=== PATIENT | female | born 1970 | race Caucasian/White ===

== ENCOUNTER 2016-10-15 09:16 | Observation (INO) ==
[2016-10-15] MEDS ORDERED: Aspirin 81 MG TAB.CHEW PO ONE (09:29)
--- NOTE | 2016-10-15 09:34 | Emergency Department Note ---
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 She describes it as left-sided with some radiation up into her shoulder. The patient 's risk factor she has border cholesterol elevation. Pt complaint: chest pain Onset (ago): week(s) Duration: intermittent Onset: during rest, during exertion Pain Location: substernal, left chest Severity scale (1-10): 4 Quality: tightness, aching Pain Radiation: LUE Improves with: nothing Worsens with: nothing Associated symptoms: Reports: dyspnea Treatments prior to arrival chest pain: none - Related Data Home Medications Medication Instructions Recorded Confirmed Albuterol Sulfate [Albuterol 2 puff IH Q4HR PRN 12/08/15 12/08/15 Inhaler] BuPROPion XL (24 HR) [Wellbutrin 150 mg PO DAILY 12/08/15 12/08/15 XL] Cetirizine HCl [Zyrtec] 10 mg PO DAILY 12/08/15 12/08/15 Fluticasone Propionate Nasal 2 spr NS DAILY 12/08/15 12/08/15 [Flonase] Lansoprazole [Prevacid] 30 mg PO DAILY PRN 12/08/15 12/08/15 Montelukast [Singulair] 10 mg PO DAILY 12/08/15 12/08/15 Multivitamin [One Daily Essential] 1 each PO DAILY 12/08/15 12/08/15 [place]-3/Dha/Epa/Fish Oil [Fish Oil 1 each PO DAILY 12/08/15 12/08/15 1,000 mg Softgel] Sertraline [Zoloft] 50 mg PO DAILY 12/08/15 12/08/15 Allergies Allergy/AdvReac Type Severity Reaction Status Date / Time acetaminophen [From Vicodin] AdvReac Vomiting Verified 12/08/15 09:32 hydrocodone [From Vicodin] AdvReac Vomiting Verified 12/08/15 09:32 Constitutional: Denies: fever, chills, weakness, weight change Eyes: Denies: eye pain, eye discharge, vision change ENT ED: Denies: ear pain, throat pain, dental pain, hearing loss, epistaxis, congestion, dysphagia Cardiovascular: Reports: chest pain, dyspnea on exertion. Denies: palpitations , edema, syncope Respiratory: Denies: cough, dyspnea, wheezes, hemoptysis, stridor Gastrointestinal: Denies: abdominal pain, nausea, vomiting, diarrhea, constipation, hematemesis, melena, hematochezia Genitourinary: Denies: dysuria, frequency, hematuria, discharge Musculoskeletal: Denies: back pain, neck pain, arthralgia, myalgia Integumentary: Denies: rash, abrasion, lesions Neurological: Denies: headache, weakness, numbness, paresthesias, confusion, abnormal gait, vertigo Psychiatric: Denies: anxiety, depression, suicidal thoughts, homicidal thoughts , auditory hallucinations, visual hallucinations Endocrine: Denies: fatigue Hematological/Lymphatic: Denies: easy bleeding, easy bruising Allergic/Immunologic: Denies: facial swelling, urticaria Chest Pain PMH - Past Medical History Medical history: Reports: asthma, GERD Surgical history: Reports: cholecystectomy Psychiatric history: Reports: anxiety, depression - Social History Smoking Status: Never smoker Alcohol use: Reports: none Drug use: Reports: none Physical Exam - General Limitations: no limitations General appearance: alert, in no apparent distress - Head Head exam: atraumatic, normocephalic, normal inspection - Eye Eye exam: Present: normal appearance, PERRL, EOMI - ENT ENT exam: normal exam, normal oropharynx, mucous membranes moist - Neck Neck exam: Present: normal inspection, full ROM, trachea midline - Chest Chest inspection: Present: normal inspection, symmetric chest wall rise - Respiratory Respiratory exam: Present: normal lung sounds bilaterally - Cardiovascular Cardiovascular exam: Present: regular rate, normal rhythm, normal heart sounds - Abdominal Exam Abdominal exam: Present: soft, Non-Tender. Absent: tenderness, distention, guarding, rebound, rigidity - Extremities Exam Extremities exam: Present: normal inspection, full ROM. Absent: tenderness, pedal edema - Expanded Lower Extremity Exam Neurovascular/Tendon exam: Absent: motor deficit, sensory deficit, tendon deficit Gait: observed and normal - Back Exam Back exam: Present: normal inspection, full ROM. Absent: tenderness - Neurological Exam Neurological exam: Present: alert, oriented X3 - Psychiatric Psychiatric exam: Present: normal affect, normal mood - Skin Skin exam: Present: warm, dry, intact, normal color Course - Reevaluation(s) Reevaluation #1: 45-year-old who comes in complaining of chest pain and exertional dyspnea dyspnea has been going on for about a month exertional chest pain for about a week. Does have some risk factors. Her clinical history is concerning for cardiac workup here in the ED was negative however we will admit for further evaluation. Time: 11:04 - Consultations Consultation #1: Discussed with Dr. Bradshaw, it. Time: 11:19 Vital Signs Temperature 98.3 F 10/15/16 09:21 Pulse Rate 70 10/15/16 09:21 Respiratory Rate 18 10/15/16 09:21 Blood Pressure 164/93 10/15/16 09:21 O2 Sat by Pulse Oximetry 97 10/15/16 09:21 Temperature 98.3 F 10/15/16 09:21 Pulse Rate 72 10/15/16 11:08 Respiratory Rate 18 10/15/16 11:08 Blood Pressure 109/71 10/15/16 11:08 O2 Sat by Pulse Oximetry 95 10/15/16 11:08 Oxygen Delivery Oxygen Delivery Room Air Chest Pain - Lab Data Lab results reviewed: Yes I reviewed the patient's lab results. Result diagrams: 10/15/16 09:51 10/15/16 09:51 Lab Results 10/15/16 10/15/16 10/15/16 Range/Units 09:51 09:51 09:51 WBC 7.1 (4.3-11.1) K/mcL RBC 4.35 (3.82-4.97) M/mcL Hgb 12.7 (11.5-15.4) g/dL Hct 37.9 (35.3-44.9) % MCV 87.1 (83.0-100.0) fL MCH 29.2 (28.0-33.3) pg MCHC 33.5 (31.6-35.5) g/dL RDW 13.1 (11.5-14.5) % Plt Count 250 (140-400) K/mcL MPV 9.4 (9.4-12.4) fL Immature Gran % 0.1 (0-4) % Seg Neutrophils % 59.8 % Lymphocytes % 30.4 % Monocytes % 7.5 % Eosinophils % 1.8 % Basophils % 0.4 % Neutrophils # 4.2 (1.6-8.9) K/mcL Lymphocytes # 2.2 (0.6-4.6) K/mcL Monocytes # 0.5 (0.0-1.3) K/mcL Eosinophils # 0.1 (0.0-0.6) K/mcL Basophils # 0.0 (0.0-0.2) K/mcL PT 11.4 (9.4-12.1) Seconds INR 1.1 APTT 30.8 (26.0-36.0) Seconds Sodium (136-145) mEq/L Potassium (3.5-4.5) mEq/L Chloride (98-109) mEq/L Carbon Dioxide (19-29) mEq/L BUN (7-20) mg/dL Creatinine (0.57-1.11) mg/dL Est GFR ( Amer) (> 60) Est GFR (Non-Af Amer) (> 60) BUN/Creatinine Ratio (6-26) Glucose (70-99) mg/dL Calculated Osmolality (280-300) Calcium (8.6-10.8) mg/dL Troponin I (0-0.03) ng/mL B-Natriuretic Peptide 34 (0-100) pg/mL 10/15/16 10/15/16 Range/Units 09:51 09:51 WBC (4.3-11.1) K/mcL RBC (3.82-4.97) M/mcL Hgb (11.5-15.4) g/dL Hct (35.3-44.9) % MCV (83.0-100.0) fL MCH (28.0-33.3) pg MCHC (31.6-35.5) g/dL RDW (11.5-14.5) % Plt Count (140-400) K/mcL MPV (9.4-12.4) fL Immature Gran % (0-4) % Seg Neutrophils % % Lymphocytes % % Monocytes % % Eosinophils % % Basophils % % Neutrophils # (1.6-8.9) K/mcL Lymphocytes # (0.6-4.6) K/mcL Monocytes # (0.0-1.3) K/mcL Eosinophils # (0.0-0.6) K/mcL Basophils # (0.0-0.2) K/mcL PT (9.4-12.1) Seconds INR APTT (26.0-36.0) Seconds Sodium 139 (136-145) mEq/L Potassium 3.6 (3.5-4.5) mEq/L Chloride 105 (98-109) mEq/L Carbon Dioxide 26 (19-29) mEq/L BUN 12 (7-20) mg/dL Creatinine 0.79 (0.57-1.11) mg/dL Est GFR ( Amer) > 60 (> 60) Est GFR (Non-Af Amer) > 60 (> 60) BUN/Creatinine Ratio 15 (6-26) Glucose 98 (70-99) mg/dL Calculated Osmolality 288 (280-300) Calcium 9.1 (8.6-10.8) mg/dL Troponin I 0.00 (0-0.03) ng/mL B-Natriuretic Peptide (0-100) pg/mL - Radiology Data Radiology results reviewed: Yes I reviewed the patient's radiology results. - EKG Data EKG attestation: Yes I reviewed and interpreted this EKG. EKG shows normal: sinus rhythm Rate: normal Rhythm: NSR [place]/QRS: IVCD Interpretation: no acute changes Heart Score - Score History: Moderately Suspicious EKG: Normal Age: 45-65 Risk Factors: 1-2 risk factors Troponin: Less than normal limit HEART Score Total: 3
[2016-10-15 09:59] LABS: Basophils % 0.4 %; Eosinophils # 0.1 K/mcL (0.0-0.6); Eosinophils % 1.8 %; Hematocrit 37.9 % (35.3-44.9); Hemoglobin 12.7 g/dL (11.5-15.4); Immature Granulocytes % 0.1 % (0-4); Lymphocytes # 2.2 K/mcL (0.6-4.6); Lymphocytes % 30.4 %; Mean Corpuscular HGB Conc 33.5 g/dL (31.6-35.5); Mean Corpuscular Hemoglobin 29.2 pg (28.0-33.3); Mean Corpuscular Volume 87.1 fL (83.0-100.0); Mean Platelet Volume 9.4 fL (9.4-12.4); Monocytes # 0.5 K/mcL (0.0-1.3); Monocytes % 7.5 %; Neutrophils # 4.2 K/mcL (1.6-8.9); Platelet Count 250 K/mcL (140-400); Red Blood Count 4.35 M/mcL (3.82-4.97); Red Cell Distribution Width 13.1 % (11.5-14.5); Segmented Neutrophils % 59.8 %
[2016-10-15 10:12] LABS: BUN/Creatinine Ratio 15 (6-26); Blood Urea Nitrogen 12 mg/dL (7-20); Carbon Dioxide 26 mEq/L (19-29); Chloride 105 mEq/L (98-109); Potassium 3.6 mEq/L (3.5-4.5); Sodium 139 mEq/L (136-145)
[2016-10-15 10:13] LABS: Calcium 9.1 mg/dL (8.6-10.8); Glucose 98 mg/dL (70-99); Osmolality,Calculated 288 (280-300); eGFR For African Americans > 60 (> 60); eGFR For Non-African Americans > 60 (> 60)
[2016-10-15 10:14] LABS: INR 1.1; Prothrombin Time 11.4 Seconds (9.4-12.1)
[2016-10-15 10:15] LABS: Activated Partial Thrombo Time 30.8 Seconds (26.0-36.0)
--- NOTE | 2016-10-15 11:47 | Event Note ---
Date of Encounter: 10/15/16 Time of Encounter: 11:45 1 chest pain, unclear etiology Monitor troponins, telemetry Continue aspirin, start Lipitor and order a lipid panel for the morning Schedule stress test in the morning, limited echocardiogram to assess wall motion abnormalities 2. GERD, start omeprazole 3. Irritable bowel syndrome 4. Hiatal hernia, may be contributing to the type of pain described 5. Anxiety Omeprazole for GI prophylaxis and Lovenox for DVT prophylaxis. Admitted for observation. Full code time spent on this admission 40 minutes. Karl's read the history and physical note by JAMEY Momin
[2016-10-15] MEDS ORDERED: Naloxone 0.4 MG/ML INJ IVP PRN (12:02)
[2016-10-15] MEDS ORDERED: Ketorolac 30 MG/ML VIAL IVP PRN (12:02)
[2016-10-15] MEDS ORDERED: Nitroglycerin 0.4 MG TAB.SUBL SL PRN (12:10)
[2016-10-15 12:54] LABS: Hemoglobin A1C 5.1 %
[2016-10-15 12:59] LABS: Chol/HDL Ratio 4.3 (0-4.9); Magnesium 1.9 mg/dL (1.6-2.6)
--- NOTE | 2016-10-15 13:06 | Internal Med History&Physical ---
<AdeelmiguelerickMoses hernandez - Last Filed: 10/15/16 13:30> Date of Encounter: 10/15/16 Time of Encounter: 12:00 Assessment and Plan (1) Chest pain Current visit: Yes Status: Acute Assess: Patient presents with chief complaint of chest pain over the past week and half. She reports she has been experiencing shortness of breath for the past month. Mrs. Ma describes chest pain as an ache and rates it as a 5 on a scale from 0-10. Reports pain is not affected with exertion but does radiate to her neck and shoulder. Plan: Continuous cardiac telemetry ordered Limited echocardiogram ordered Pharmacologic stress test ordered Repeat EKG ordered Lipid panel ordered Trend troponins x2 Nitroglycerin 0.4 ordered PRN Lipitor 20 mg daily ordered while inpatient Possible cardiology consult to be placed based on stress test results Monitor patient's vital signs Monitor patient for continued signs of chest pain Qualifiers: Chest pain type: unspecified Qualified Code(s): R07.9 - Chest pain, unspecified (2) Asthma Current visit: Yes Status: Chronic Assess: Patient presents with history of chronic asthma. Plan: Continue albuterol sulfate inhaler Continue cetirizine Continue Flonase Continue Singulair Qualifiers: Asthma severity: unspecified severity Asthma complication type: uncomplicated Qualified Code(s): J45.909 - Unspecified asthma, uncomplicated (3) GERD (gastroesophageal reflux disease) Current visit: Yes Status: Chronic Assess: Patient presents with history of chronic gastroesophageal reflux disease. Plan: Continue Prevacid Qualifiers: Qualified Code(s): K21.9 - Gastro-esophageal reflux disease without esophagitis (4) Anxiety and depression Current visit: Yes Status: Chronic Assess: Presents with history of chronic anxiety depression. Plan: Continue Wellbutrin Continue Zoloft (5) DVT prophylaxis Current visit: Yes Assess: Patient is on DVT prophylaxis to current chief complaint of chest pain and inpatient status. Plan: Heparin 5000 units subcutaneous every 8 ordered Internal Medicine - H&P: HPI Chief complaint: Chest pain Admitted From: Emergency Dept Plans for Post Hospital Care: Home History of present illness: Ms. Ma is a 45 year old female who presents from the ED with chief complaint of chest pain over the past week and half. She reports she has been experiencing shortness of breath for the past month. Mrs. Ma describes chest pain as an ache and rates it as a 5 on a scale from 0-10. Reports pain is not affected with exertion but does radiate to her neck and shoulder. Patient is obese with BMI of 40.2 and states she recently lost weight but was unsuccessful in keeping it off. She denies palpitations, edema, syncope, cough , wheezes, nausea vomiting, or generalized weakness or numbness. Patient has no cardiac history or history of heart disease. Patient is to be admitted as observation status where we will trend her troponins. Patient is to be placed on continuous cardiac telemetry with repeat EKG. Orders for limited echo in pharmacological stress test have been placed with possible cardiology consult based on results of stress test. Lipid panel ordered as well. Patient to receive ibuprofen for pain rated 1-3 and ketorolac for pain rated 4-6. Nitroglycerin when necessary ordered. Lipitor 20 mg ordered while inpatient status. DVT prophylaxis to include heparin 5000 units subcutaneous every 8 hours. Patient to be monitored closely for continued signs of chest pain. Past Med Surg Social Fam HX - Past Medical History Medical history: asthma, GERD Psychiatric history: anxiety, depression - Past Surgical History Surgical History: cholecystectomy - Social History Smoking Status: Never smoker Alcohol use: none Drug use: none - Family History Mother Race: Family Member Ethnicity: Non- Living Status: Still Living Hx Family Cardiac Disorders: Yes (HTN) Hx Family Cancer: Yes (Breast) Father Race: Family Member Ethnicity: Non- Living Status: Still Living Hx Family Cardiac Disorders: Yes (HTN) Hx Family Genitourinary Disorders: Yes (Renal calculi) Brother Race: Family Member Ethnicity: Non- Living Status: Still Living Hx Family Cardiac Disorders: Yes (Hyperlipidemia) Sister Race: Family Member Ethnicity: Non- Living Status: Still Living Hx Family Medical Disorders: No Internal Medicine - H&P: Meds Albuterol Sulfate [Albuterol Inhaler] 2 puff IH Q4HR PRN 12/08/15 [History] BuPROPion XL (24 HR) [Wellbutrin XL] 150 mg PO DAILY 12/08/15 [History] Cetirizine HCl [Zyrtec] 10 mg PO DAILY 12/08/15 [History] Fluticasone Propionate Nasal [Flonase] 2 spr NS DAILY 12/08/15 [History] Lansoprazole [Prevacid] 30 mg PO DAILY PRN 12/08/15 [History] Montelukast [Singulair] 10 mg PO DAILY 12/08/15 [History] Multivitamin [One Daily Essential] 1 tab PO DAILY 12/08/15 [History] [place]-3/Dha/Epa/Fish Oil [Fish Oil 1,000 mg Softgel] 1,000 mg PO DAILY 12/08/15 [History] Sertraline [Zoloft] 50 mg PO DAILY 12/08/15 [History] Ascorbate Calcium [Vitamin C] 500 mg PO DAILY 10/15/16 [History] Vitamin B Complex [B Complex] 1 tab PO DAILY 10/15/16 [History] Allergies acetaminophen [From Vicodin] Adverse Reaction (Verified 12/08/15 09:32) Vomiting hydrocodone [From Vicodin] Adverse Reaction (Verified 12/08/15 09:32) Vomiting All Systems PM: A 10-system review of systems was performed and is negative for pertinent findings except as documented above in the HPI. - Constitutional Constitutional: no chills, no fever(s), no night sweats - EENT Eyes: no change in vision, no discharge, no pain, no photophobia Ears: no ear discharge, no ear pain, no tinnitus Nose, mouth and throat: no dysphagia, no nasal discharge, no neck pain, no sore throat - Breasts Breasts: as per HPI - Cardiovascular Cardiovascular ROS IM: as per HPI, chest pain, dyspnea, dyspnea on exertion - Respiratory Respiratory: as per HPI, dyspnea - Gastrointestinal Gastrointestinal: no abdominal pain, no diarrhea, no hematemesis, no hematochezia, no melena, no nausea, no vomiting - Genitourinary Genitourinary: no change in urinary stream, no dysuria, no flank pain, no hematuria Menstruation: as per HPI - Musculoskeletal Musculoskeletal ROS IM: no numbness, no tingling - Integumentary Integumentary IM: no rash, no unusual bruising - Neurological Neurological ROS: no confusion, no convulsions, no focal weakness, no numbness, no tingling, no tremor(s) - Psychiatric Psychiatric: as per HPI, anxiety (Patient currently takes Zoloft due to syndrome she experienced after the of her last child.) - Endocrine Endocrine IM: as per HPI - Hematologic/Lymphatic Hematologic/Lymphatic: no easy bruising - Allergic/Immunologic Allergic/Immunologic: as per HPI - Constitutional Vitals: Temp Pulse Resp BP Pulse Ox 98.3 F 72 16 128/80 95 10/15/16 09:21 10/15/16 11:08 10/15/16 12:46 10/15/16 12:46 10/15/16 11:08 General appearance: Present: cooperative, A&O X 3, morbidly obese, pleasant, no acute distress, answers questions appropriately - Head Head exam: Present: atraumatic, normocephalic - Eye Eye exam: Present: PERRL, conjuntiva pink, sclera anicteric Pupils: Present: PERRL - ENT ENT exam: Present: normal exam, normal external ear exam, normal oropharynx - Neck Neck exam general surgery: Present: supple, trachea midline. Absent: lymphadenopathy - Respiratory Respiratory exam: Present: CTAB. Absent: accessory muscle use, rales, rhonchi, wheezes - Cardiovascular Cardiovascular exam: Present: RRR, +S1, +S2. Absent: diastolic murmur, gallop, rubs, systolic murmur - GI/Abdominal GI/Abdominal exam: Present: normal bowel sounds, soft, no peritoneal signs. Absent: distended, tenderness - Rectal Rectal exam: Present: deferred - Additional comments: exam deferred. - Extremities Exam Extremities exam: Present: warm, radial pulses palpable and symetrical. Absent : calf tenderness, cyanotic, pedal edema - Back Exam Back exam: Present: normal inspection - Neurological Exam Neurological exam: Present: CN II-XII intact, oriented X3, no focal deficits. Absent: pronater drift, facial droop, speech deficit - Psychiatric Psychiatric exam: Present: normal affect, normal mood - Skin Skin exam: Present: dry, intact Internal Med - H&P Results - Labs CBC & Chem 7: 10/15/16 09:51 10/15/16 09:51 - EKG Data Prior EKG available for review: no EKG comments: 10/15/16 13:17 EKG dated 10/15/16 shows moderate intraventricular conduction delay and moderate voltage criteria for LVH. Consider normal variant. - Diagnostic Studies Chest x-ray Additional comments: 1-View CXR dated 10/15/16 shows heart size and pulmonary vessels within normal limits. Lungs clear. Costophrenic angles sharp. Overall impression: No active cardiopulmonary disease. <Derrell Hebert H - Last Filed: 10/15/16 13:47> Date of Encounter: 10/15/16 Internal Medicine - H&P: HPI History of present illness: Ms. Ma is a 45 year old female All Systems PM: A 10-system review of systems was performed and is negative for pertinent findings except as documented above in the HPI. - Constitutional Vitals: Temp Pulse Resp BP Pulse Ox 98.9 F 67 16 120/77 97 10/15/16 13:05 10/15/16 13:05 10/15/16 13:05 10/15/16 13:05 10/15/16 13:05 Internal Med - H&P Results - Labs CBC & Chem 7: 10/15/16 09:51 10/15/16 09:51 Labs: Cardiac Enzymes 10/15/16 Range/Units 12:39 Troponin I 0.00 (0-0.03) ng/mL - Attending Attestation 1 chest pain, unclear etiology Monitor troponins, telemetry Continue aspirin, start Lipitor and order a lipid panel for the morning Schedule stress test in the morning, limited echocardiogram to assess wall motion abnormalities 2. GERD, start omeprazole 3. Irritable bowel syndrome 4. Hiatal hernia, may be contributing to the type of pain described 5. Anxiety Omeprazole for GI prophylaxis and Lovenox for DVT prophylaxis. Admitted for observation. Full code time spent on this admission 40 minutes. I examined this patient and my medical decision-making was reviewed with the PAINT MIXER HAND/PA/Advanced Practice Nurse/Resident Physician. I agree with the documented findings, disposition and treatment plan as described except to the extent set forth below.
[2016-10-15] MEDS: *HR* Heparin 5,000 UNIT/ML VIAL SQ SCH ×2 (13:34→21:28)
--- NOTE | 2016-10-15 15:16 | ECHO - Doppler Report ---
Limited Echocardiogram Name: Ruth Ma Date of Study: 10/15/2016 Date: 1970 Ht: 69.0 in Medical Record#: [id number] Age: 45 Wt: 272.0 lb Gender: Female BSA: 2.35 Order #: [id number] Location: [facility] Room #: [facility] Reading Physician: Shilpi Chan DO Window Shade Ring Sewer: John Colby RDCS Ordering Physician: Moses Momin CNP Primary Physician: Mindi Maldonado CNP Indications: Chest pain Impressions: LVEF 60%. Normal left ventricular size and systolic function. Normal right ventricular size and function. Left Ventricular Wall Motion: Rest Echo Findings All wall segments showed normal motion. Findings: Study Quality * Technically adequate exam. ECG Findings * Normal sinus rhythm. Left Ventricle * LVEF 60%. * Normal LV chamber size, wall thickness and function. IVC * The IVC is not dilated. Left Atrium * Normal left atrial size. Right Ventricle * Normal right ventricular structure and function. History Hypercholesteremia Measurements: BP: 120/ 77 2D Normal Values RVIDd: 2.70 cm <2.7 cm IVSd: 1.06 cm 0.6 - 1.0 cm LVIDd: 5.30 cm 3.7 - 5.6 cm LVPWd: 1.01 cm 0.6 - 1.1 cm LVIDs: 3.81 cm 1.5 - 3.6 cm AO: 2.70 cm < 4.0 cm LA: 3.80 cm 2.0 - 4.0cm %FS: 28.10 cm >25 % LA volume: Updated by Shilpi Chan on 10/15/2016 3:10:29 PM electronically signed on 10/15/2016 3:10:59 PM with status of Final Wall Motion Jimenez: 1=Normal, 2=Hypokinesis, 3=Akinesis, 4=Dyskinesis, 5=Aneurysmal, 6=Hyperkinetic, X=Not Visualized (Blank)=Missing
[2016-10-16] MEDS: *HR* Heparin 5,000 UNIT/ML VIAL SQ SCH ×3 (05:20→21:17)
[2016-10-16 05:33] LABS: Basophils % 0.4 %; Eosinophils # 0.2 K/mcL (0.0-0.6); Eosinophils % 3.4 %; Hematocrit 37.5 % (35.3-44.9); Hemoglobin 12.5 g/dL (11.5-15.4); Immature Granulocytes % 0.4 % (0-4); Lymphocytes # 2.4 K/mcL (0.6-4.6); Lymphocytes % 41.6 %; Mean Corpuscular HGB Conc 33.3 g/dL (31.6-35.5); Mean Corpuscular Hemoglobin 29.4 pg (28.0-33.3); Mean Corpuscular Volume 88.2 fL (83.0-100.0); Mean Platelet Volume 9.7 fL (9.4-12.4); Monocytes # 0.5 K/mcL (0.0-1.3); Monocytes % 9.4 %; Neutrophils # 2.5 K/mcL (1.6-8.9); Platelet Count 250 K/mcL (140-400); Red Blood Count 4.25 M/mcL (3.82-4.97); Red Cell Distribution Width 13.2 % (11.5-14.5); Segmented Neutrophils % 44.8 %
[2016-10-16 05:51] LABS: Alanine Aminotransferase 14 Units/L (0-55); Albumin 3.5 g/dL (3.5-5.0); Albumin/Globulin Ratio 1.2 (1.1-2.2); Alkaline Phosphatase 60 Units/L (38-126); Aspartate Amino Transferase 19 Units/L (5-34); BUN/Creatinine Ratio 14 (6-26); Bilirubin,Total 0.9 mg/dL (0.2-1.2); Blood Urea Nitrogen 11 mg/dL (7-20); Calcium 8.7 mg/dL (8.6-10.8); Carbon Dioxide 26 mEq/L (19-29); Chloride 106 mEq/L (98-109); Globulin 2.9 g/dL (2.4-3.5); Glucose 100 mg/dL (70-99); Osmolality,Calculated 289 (280-300); Potassium 3.5 mEq/L (3.5-4.5); Sodium 140 mEq/L (136-145); Total Protein 6.4 g/dL (6.0-8.3); eGFR For African Americans > 60 (> 60); eGFR For Non-African Americans > 60 (> 60)
[2016-10-16] MEDS ORDERED: Regadenoson 0.4 MG/5 ML SYRINGE IVP ONE (06:26)
[2016-10-16] MEDS: Ibuprofen 400 MG TABLET PO PRN ×2 (09:25→21:16)
--- NOTE | 2016-10-16 11:08 | Electrocardiograph Report ---
[address] [address] Test Date: 2016-10-15 Pat Name: Ruth Ma Department: 104 Room: [facility] Gender: F Arts Administrator: : 1970 Requested By: Chico Schilling Order Number: [id number] Reading MD: Elsa Kumari Measurements Intervals [place] Rate: 65 P: 238 IA: 98 QRS: -18 QRSD: 114 T: 41 QT: 386 QTc: 397 Interpretive Statements NORMAL SINUS RHYTHM MODERATE INTRAVENTRICULAR CONDUCTION DELAY MODERATE VOLTAGE CRITERIA FOR LVH, CONSIDER NORMAL VARIANT ABNORMAL RHYTHM ECG Electronically Signed On 10-16-2016 11:07:16 EDT by Elsa Kumari
[2016-10-16] MEDS: Loratadine 10 MG TABLET PO SCH (12:44)
[2016-10-16] MEDS: Multivit/Ca/Min/Fe/FA 1 TAB TABLET PO SCH (12:44)
[2016-10-16] MEDS: Vitamin B Complex/Vit C/Vit E 1 EACH TABLET PO SCH (12:44)
[2016-10-16] MEDS: Fluticasone Propionate Nasal 50 MCG/SPRAY BOTTLE NS SCH (12:44)
[2016-10-16] MEDS: BuPROPion XL (24 HR) 150 MG TABLET PO SCH (12:44)
[2016-10-16] MEDS: Ascorbic Acid 500 MG TABLET PO SCH (12:44)
--- NOTE | 2016-10-16 12:44 | Nuclear Medicine Stress Report ---
Regadenoson Nuclear 2 day Name: Ruth Ma Date of Study: 10/15/2016 Date: 1970 Ht: 69.0 in Medical Record#: [id number] Age: 45 Wt: 270.0 lb Gender: Female Order #: [id number] Location: [facility] Room: [facility] Supervising Provider: Kevin Mon CNP Reading Physician: Shilpi Chan DO Ordering Physician: Mirian Guevara MD Primary Care Physician: Mindi Maldonado CNP Stress Technologist: Augusto Jackson, [place]OUR[place], CCT Laborer Laboratory: [facility] Indications: Chest Pain Impression: Technically challenging 2-day study due to body habitus. There is a mild intensity perfusion defect involving the mid to distal anterior wall during stress. Planar images demonstrate breast attenuation artifact on stress images. However, due to suboptimal image quality, cannot rule out the presence of mild ischemia. Recommend clinical correlation. Low level exercise ECG is non-diagnostic for ischemia. Gated EF = >70%. Findings communicated to ordering provider. History: Hypercholesteremia Stress Test Summary: Stress Test Type: Low level pharmacologic Regadenoson 0.4mg/5ml given IV Baseline Information: Initial Heart Rate: 69 Blood Pressure: 150/90 Stress Information: Stress Time: 4 min 00 sec Test Terminated Due to (primary): Completed Protocol Maximum Blood Pressure: 180/100 Maximum Heart Rate: 119 Percent Maximum Heart Rate Achieved: 68 Double Product: 21,420 METS Reached: 2.1 Symptoms: Shortness of breath Nuclear Summary: SPECT myocardial perfusion imaging using Tc99m Sestamibi given intravenously was performed at rest and following cardiac stress testing. The resting images were obtained following initial dose of 34.9 mCi. Following stress an additional dose of 35.1 mCi was given at peak exercise or 30 seconds post regadenoson infusion. Medication Given: Time Medication Dose Units Route Findings: Stress Note * Resting ECG demonstrated normal sinus rhythm with LAFB and nonspecific ST abnormalities. * Low level exercise/pharmacologic stress ECG is non-diagnostic for ischemia due to baseline ST changes. * Patient had no chest pain during stress. * No arrhythmias were noted during stress. Hemodynamic responses * Normal hemodynamic responses to low level exercise plus pharmacologic stress. Study Quality * Technically challenging 2-day study. Gated EF > 70% * Gated EF > 70%. Left Ventricle * The left ventricle is not dilated. TID * No evidence of transient ischemic dilatation. Lung Uptake * There is no evidence of increase lung uptake. NORMALS * Normal wall motion. PERFUSION * There is a mild intensity perfusion defect during stress involving primarily the mid to distal anterior wall. * Other segments demonstrate normal rest and stress perfusion. Updated by Shilpi Chan on 10/16/2016 12:28:40 PM electronically signed on 10/16/2016 12:39:09 PM with status of Final
[2016-10-16] MEDS: (Omega-3/Dha/Epa/Fish Oil [Fish Oil 1,000 Mg Softgel) PO SCH (12:45)
--- NOTE | 2016-10-16 14:55 | Cardiology Consult Note ---
Date of Encounter: 10/16/16 Time of Encounter: 14:52 Assessment and Plan (1) Abnormal stress test Current Visit: Yes Status: Acute Stress test showed mild perfusion defect in the mid-distal anterior wall at rest. There was breast attenuation artifact on stress images, unable to r/o ischemia. Clinical correlation. TTE showed normal EF and no wall motion abnormalities. Troponin negative. EKG with no ischemic changes. Currently pain free. I discussed stress test/TTE results. Borderline stress test with artifact d/t large chest. Cardiac risk factor includes borderline HLD. LHC vs medical management discussed. Patient will consider results. Risk factor modification. Discussed with Dr. Ray, will start low dose imdur. (2) Chest pain Current Visit: Yes Status: Acute See plan above. Currently pain free. Qualifiers: Chest pain type: unspecified Qualified Code(s): R07.9 - Chest pain, unspecified Discussion w patient/family: The assessment and plan as outlined above was discussed with the patient and/or family members who expressed understanding and agreement. All questions were answered. Thank you for involving us in the care of your patient. Please call with any questions. History of Present Illness Consult date: 10/16/16 Requesting physician: Terence Guevara Consult reason: Abnormal stress test Chief complaint: Chest pain History of present illness: Ms. Ma is a 45 year old female with a history of HLD who presented with chest pain. Cardiology consulted for abnormal EKG. She c/o intermittent chest pain over the last week. Last while she was driving she developed a sharp left sided chest pain that radiated to her shoulder and lasted a few minutes. She did well over the weekend without recurrent chest pain. Denied exertional pain. She was at work yesterday when she developed recurrent left sided pain. She denies associated symptoms. Her co-workers noticed she was clutching her chest and made her go to the ER. She is currently pain free. Past Med Surg Social Fam HX - Past Medical History Medical history: asthma, GERD Psychiatric history: anxiety, depression - Past Surgical History Surgical History: cholecystectomy - Social History Smoking Status: Never smoker Alcohol use: none Drug use: none - Family History Mother Race: Family Member Ethnicity: Non- Living Status: Still Living Hx Family Cardiac Disorders: Yes (HTN) Hx Family Cancer: Yes (breast CA) Father Race: Family Member Ethnicity: Non- Living Status: Still Living Hx Family Cardiac Disorders: Yes (HTN) Hx Family Genitourinary Disorders: Yes (Renal calculi) Brother Race: Family Member Ethnicity: Non- Living Status: Still Living Hx Family Cardiac Disorders: Yes (Hyperlipidemia) Sister Race: Family Member Ethnicity: Non- Living Status: Still Living Hx Family Medical Disorders: No Medications and Allergies Albuterol Sulfate [Albuterol Inhaler] 2 puff IH Q4HR PRN 12/08/15 [History] BuPROPion XL (24 HR) [Wellbutrin XL] 150 mg PO DAILY 12/08/15 [History] Cetirizine HCl [Zyrtec] 10 mg PO DAILY 12/08/15 [History] Fluticasone Propionate Nasal [Flonase] 2 spr NS DAILY 12/08/15 [History] Lansoprazole [Prevacid] 30 mg PO DAILY PRN 12/08/15 [History] Montelukast [Singulair] 10 mg PO DAILY 12/08/15 [History] Multivitamin [One Daily Essential] 1 tab PO DAILY 12/08/15 [History] Kennedy-3/Dha/Epa/Fish Oil [Fish Oil 1,000 mg Softgel] 1,000 mg PO DAILY 12/08/15 [History] Sertraline [Zoloft] 50 mg PO DAILY 12/08/15 [History] Ascorbate Calcium [Vitamin C] 500 mg PO DAILY 10/15/16 [History] Vitamin B Complex [B Complex] 1 tab PO DAILY 10/15/16 [History] Allergies acetaminophen [From Vicodin] Adverse Reaction (Verified 12/08/15 09:32) Vomiting hydrocodone [From Vicodin] Adverse Reaction (Verified 12/08/15 09:32) Vomiting All Systems Review: A 10-system review of systems was performed and is negative for pertinent findings except as documented above in the HPI. Physical Examination Vital Signs Temp Pulse Resp BP Pulse Ox 10/16/16 15:01 97.8 F 61 18 112/77 96 10/16/16 06:32 98.1 F 64 18 136/80 98 10/16/16 05:08 97.7 F 60 16 124/72 96 10/15/16 23:57 97.9 F 61 16 121/82 96 10/15/16 19:52 98.3 F 67 16 122/70 95 10/15/16 15:28 98.2 F 64 16 121/62 99 Intake and Output 10/15/16 10/16/16 10/16/16 23:59 07:59 15:59 Intake Total 450 / 450 75 / 75 Balance 450 / 450 75 / 75 Intake: Oral 450 / 450 75 / 75 Other: Meal Dinner Percent of Meal Consumed 100% Weight 123.1 kg Blood Glucose* 86 Patient Weight 10/16/16 23:59 Weight 123.1 kg General: Conversant, No Apparent Distress HEENT: Atraumatic, Normocephaly, Mucus Membranes Moist Neck: No JVD, Normal carotid pulses Cardiac: Reg Rate and Rhythm, Normal S1 and S2, No Murmur Lungs: Normal Breath Sounds, No Wheeze, Rales, Rhonchi Neuro: Alert and responsive, No focal deficits noted Abdomen: Soft, Non-Tender Skin: No rashes noted on visualized skin Musculoskeletal: No Chest Wall Tenderness Extremities: No Clubbing, No Cyanosis, No Edema, Normal Pulses Results 10/16/16 04:56 10/16/16 04:56 Lab Results 10/15/16 10/16/16 10/16/16 19:08 04:56 04:56 WBC 5.7 Hgb 12.5 Hct 37.5 Plt Count 250 D-Dimer Sodium 140 Potassium 3.5 Chloride 106 Carbon Dioxide 26 BUN 11 Creatinine 0.79 Glucose 100 H Calcium 8.7 Total Bilirubin 0.9 AST 19 ALT 14 Alkaline Phosphatase 60 Troponin I 0.00 10/16/16 12:47 WBC Hgb Hct Plt Count D-Dimer < 215 Sodium Potassium Chloride Carbon Dioxide BUN Creatinine Glucose Calcium Total Bilirubin AST ALT Alkaline Phosphatase Troponin I - Imaging and Cardiology Stress Test: report reviewed Echo: report reviewed - EKG Interpretation EKG results cardiology: personally reviewed Consult Discharge Plan - Plan Referrals: Mindi Maldonado, ZAINA [Primary Care Provider] -
--- NOTE | 2016-10-16 19:00 | Internal Med Progress Note ---
Date of Encounter: 10/16/16 Time of Encounter: 09:00 - Assessment and plan (1) Abnormal stress test Current Visit: Yes Status: Acute Assessment and plan: Cardio consult appreciated. Plan for LHC (2) Chest pain Current Visit: Yes Status: Acute Assessment and plan: Pain free now. - Three sets of troponin negative. - EKG and CXR unremarkable. - D-Dimer negative. - Abnormal stress test, plan for LHC. - ASA and imdur placed by cardio Qualifiers: Chest pain type: unspecified Qualified Code(s): R07.9 - Chest pain, unspecified (3) DVT prophylaxis Current Visit: Yes Status: Acute Assessment and plan: Heparin SC (4) Asthma Current Visit: Yes Status: Chronic Assessment and plan: Stable, continue home med. Qualifiers: Asthma severity: unspecified severity Asthma complication type: uncomplicated Qualified Code(s): J45.909 - Unspecified asthma, uncomplicated - Time Spent With Patient 25 - 35 minutes - Subjective Interval history: Patient is a 45-year-old female admitted for chest pain. Patient was seen and examined. She is a pain-free when I saw her. Vitals are stable. Her 3 sets of troponin negative, d-dimer negative, EKG and chest x-ray unremarkable. However, her stress test that shows possible anterior wall ischemia. Cardiology consult appreciated, plan for LHC in AM. - Constitutional Vitals: Temp Pulse Resp BP Pulse Ox 97.8 F 61 18 112/77 96 10/16/16 15:01 10/16/16 15:01 10/16/16 15:01 10/16/16 15:01 10/16/16 15:01 General appearance: Present: cooperative, A&O X 3, morbidly obese, pleasant, no acute distress, answers questions appropriately - Head Head exam: Present: atraumatic, normocephalic - Eye Eye exam: Present: PERRL, conjuntiva pink, sclera anicteric Pupils: Present: PERRL - Neck Neck exam general surgery: Present: supple, trachea midline. Absent: lymphadenopathy - Respiratory Respiratory exam: Present: CTAB. Absent: accessory muscle use, rales, rhonchi, wheezes - Cardiovascular Cardiovascular exam: Present: RRR, +S1, +S2. Absent: diastolic murmur, gallop, rubs, systolic murmur - GI/Abdominal GI/Abdominal exam: Present: normal bowel sounds, soft, no peritoneal signs. Absent: distended, tenderness - Extremities Exam Extremities exam: Present: warm, radial pulses palpable and symetrical. Absent : calf tenderness, cyanotic, pedal edema - Neurological Exam Neurological exam: Present: CN II-XII intact, oriented X3, no focal deficits. Absent: pronater drift, facial droop, speech deficit - Skin Skin exam: Present: dry, intact Internal Medicine: Result - Labs CBC & Chem 7: 10/16/16 04:56 10/16/16 04:56 Labs: Short CBC 10/16/16 Range/Units 04:56 WBC 5.7 (4.3-11.1) K/mcL Hgb 12.5 (11.5-15.4) g/dL Hct 37.5 (35.3-44.9) % Plt Count 250 (140-400) K/mcL Neutrophils # 2.5 (1.6-8.9) K/mcL BMP 10/16/16 04:56 Sodium 140 Potassium 3.5 Chloride 106 Carbon Dioxide 26 BUN 11 Creatinine 0.79 Glucose 100 H Calcium 8.7 Cardiac Enzymes 10/15/16 Range/Units 19:08 Troponin I 0.00 (0-0.03) ng/mL Liver Function 10/16/16 Range/Units 04:56 Total Bilirubin 0.9 (0.2-1.2) mg/dL AST 19 (5-34) Units/L ALT 14 (0-55) Units/L Alkaline Phosphatase 60 (38-126) Units/L Albumin 3.5 (3.5-5.0) g/dL - ABG Interpretation ABG results: PT/INR, D-dimer PT 11.4 Seconds (9.4-12.1) 10/15/16 09:51 D-Dimer < 215 ng/mLFEU (0-500) 10/16/16 12:47 Consult Discharge Plan - Plan Referrals: Mindi Maldonado CNP [Primary Care Provider] -
[2016-10-16] MEDS: Isosorbide MONOnitrate (24 HR) 30 MG TAB.ER.24H PO SCH (19:05)
[2016-10-16] MEDS: Aspirin 81 MG TAB.CHEW PO SCH (19:05)
[2016-10-17] MEDS: *HR* Heparin 5,000 UNIT/ML VIAL SQ SCH (03:33)
[2016-10-17] MEDS ORDERED: Heparin 1,000 UNITS/500 mL NS 500 ML ONE (07:41)
[2016-10-17] MEDS ORDERED: Nitroglycerin 1,000 MCG/10 ML VIAL IV ONE (07:41)
[2016-10-17] MEDS: Fluticasone Propionate Nasal 50 MCG/SPRAY BOTTLE NS SCH (07:41)
[2016-10-17] MEDS: (Omega-3/Dha/Epa/Fish Oil [Fish Oil 1,000 Mg Softgel) PO SCH (07:41)
[2016-10-17] MEDS: BuPROPion XL (24 HR) 150 MG TABLET PO SCH ×2 (07:41→12:35)
[2016-10-17] MEDS ORDERED: *HR* Heparin 10,000 UNIT/10 ML VIAL ONE (07:41)
[2016-10-17] MEDS ORDERED: Verapamil 5 MG/2 ML VIAL ONE (07:41)
[2016-10-17] MEDS: Loratadine 10 MG TABLET PO SCH ×2 (07:41→12:35)
[2016-10-17] MEDS: Vitamin B Complex/Vit C/Vit E 1 EACH TABLET PO SCH ×2 (07:41→12:35)
[2016-10-17] MEDS: Isosorbide MONOnitrate (24 HR) 30 MG TAB.ER.24H PO SCH (07:41)
[2016-10-17] MEDS ORDERED: 0.9 % Sodium Chloride 1,000 ML ONE ×2 (07:41→08:19)
[2016-10-17] MEDS: Aspirin 81 MG TAB.CHEW PO SCH (07:41)
[2016-10-17] MEDS: Ascorbic Acid 500 MG TABLET PO SCH ×2 (07:41→12:35)
[2016-10-17] MEDS: Multivit/Ca/Min/Fe/FA 1 TAB TABLET PO SCH ×2 (07:41→12:35)
[2016-10-17] MEDS ORDERED: *HR* FentaNYL (PF) 100 MCG/2 ML VIAL ONE (08:17)
[2016-10-17] MEDS ORDERED: *HR* Midazolam HCl 2 MG/2 ML VIAL ONE (08:17)
--- NOTE | 2016-10-17 08:17 | Pre-Sedation Evaluation ---
Pre-sedation evaluation - Pre-sedation checklist Date of procedure: 10/17/16 Procedure: Heart Cath Recent Vitals: Last Vital Signs Temp 97.6 F 10/17/16 06:41 Pulse 63 10/17/16 06:41 Resp 16 10/17/16 06:41 BP 98/57 10/17/16 06:41 Pulse Ox 96 10/17/16 06:41 H&P (including ROS) documented in medical record: Yes Previous reaction to sedatives/anesthetics: No Dietary Status: NPO after Midnight Dentition: No loose teeth or bridges ASA Classification *see protocol: CLASS II-Mild systemic disease Plan of Care: Pt appropriate candidate for procedure/moderate/conscious sedation , Risks/benefits of procedure/sedation discussed w/ patient/family
--- NOTE | 2016-10-17 09:00 | Invasive Diagnostic Lab Proc ---
Name: Ruth Ma Date of Study: 10/17/2016 Date: 1970 Ht: 68.9in Medical Record#: [id number] Age: 45 Wt: 271.17lb Gender: Female BSA: 2.35 Order #: [id number] BMI: 40.16 Physicians Procedure Physician: Trung Ray MD, [facility] Referring MD: Referring MD: Staff Name Position Time In Heather Colbert RT (R) Monitor 08:22 AM Trung Ray MD Resp Therapist 08:23 AM Royer Jaramilloa RT (R) Scrub 08:23 AM Indications Indication Chest Pain Dyspnea Procedures Performed Procedure L HRT ARTERY/VENTRICLE ANGIO Pre-Procedure Checklist Informed consent is complete signed and on chart. H\\T\\P is on chart. ID band is on and ID verified with patient. Patient NPO for procedure The procedure was described for the patient and questions were answered. Blood Pressure: 98/57 ECG is on chart. Rhythm: NSR Plan of Care Patient will tolerate the procedure without complications. Adequate level of comfort will be maintained. Hemodynamics will remain stable Patient will recover from procedure without complications. Respiratory function will be maintained. Cardiac rhythm will remain stable. Patient temperature will be maintained. Patient and/or family have verbalized understanding of the procedure. Patient Education Chief Complaint/Reason for Test: Cardiac Cath Developmental Category: Adult (18-64 years) Developmentally Appropriate for Age: Yes Learning Barriers: None Education Needs: Procedure Education Method: Verbal Information Taught: Cardiac Cath Educational Evaluation: Able to repeat information Intravenous Access Time IV Size Location DC'd Fluid/Drip Rate Units RN 07:49 AM 20g 1 /" Patent On Arrival Rt Arm 0.9NaCl 50 ml/hr Millicent Lizarraga RN Allergies VICODIN Vital Signs Time BP (mmHg) HR (bpm) O2 Sat. RR (bpm) LOC 07:50 AM 98 / 57 63 96 % 16 5 = Fully awake and oriented or at pre-proc level 08:25 AM / % 4 = Oriented but drowsy 08:25 AM / % 4 = Oriented but drowsy 08:19 AM 122 / 75 58 100 % 08:24 AM 117 / 65 76 99 % 13 08:29 AM 108 / 68 60 97 % 14 08:34 AM 109 / 65 58 98 % 15 08:39 AM 97 / 54 60 88 % 08:43 AM 98 / 57 52 94 % 12 Procedural Medications Time Medication Dose Units Method Given By 08:24 AM Oxygen 2 L/min nasal cannula Millicent Lizarraga RN 08:24 AM Versed 2 mg Intravenous Millicent Lizarraga RN 08:24 AM Fentanyl 50 mcg Intravenous Millicent Lizarraga RN 08:30 AM Versed 1 mg Intravenous Millicent Lizarraga RN 08:30 AM Fentanyl 100 mcg Intravenous Millicent Lizarraga RN 08:31 AM Lidocaine 2% 0.5 ml Subcutaneous Trung Ray MD, [facility] 08:35 AM Heparin 4000 units Nitroglycerin 200 mcg Verapamil 2.5 mg Intraarterial Trung Ray MD, [facility] ASA Classification: CLASS II- Mild systemic disease (i.e. well-controlled diabetes, hypertension, asthma, cigarette smoking) Fran Score Preprocedure Postprocedure Activity 2- Moves 4 extremities sustained head lift Activity 2- Moves 4 extremities sustained head lift Circulation 2- SBP +/= 20 points of pre-anesthetic level Circulation 2- SBP +/= 20 points of pre-anesthetic level Consciousness 2- Awake and alert oriented x 3 Consciousness 2- Awake and alert oriented x 3 O2 Saturation 2- Able to maintain O2 satruation of 92% on room air O2 Saturation 2- Able to maintain O2 satruation of 92% on room air Respiratory 2- Able to deep breathe and cough well Respiratory 2- Able to deep breathe and cough well Total Score 10 Total Score 10 Contrast Agent: Isovue Fluoro Dose: 307 mGy Procedure Log Time Note Enter By 07:46 AM CathStat 07:46 AM Case Start 08:18 AM Vitals capture started with the following parameters, Patient=Adult, Interval=5 min, Initial Gejzplfd=968 mmHg, Deflation Rate=5 mmHg, Cuff placed on Left Arm 08:18 AM Recorded ECG: HR=58 Condition=Condition 1 08:19 AM HR=58 bpm, GTAK=044/75 mmhg, VuT9=919.0 % 08:21 AM Pressure channel 1 zeroed. 08:21 AM Recorded ECG: HR=65 Condition=Condition 1 08:22 AM Pt arrived to photographic laboratory technician 2 at 08:22 [email or web address] 08:23 AM Heather Colbert RT (R) Position: Monitor Time in: 08:22 [email or web address] 08:23 AM Trung Ray MD Position: Resp Therapist Time in: 08:23 [email or web address] 08:23 AM Lexy Jaramillo RT (R) Position: Scrub Time in: 08:23 [email or web address] 08:23 AM Patient charges- Angio tray pack, Navilyst 3mm J, Pulse Oximetry and ACIST tubing and transducer [email or web address] 08:23 AM Case Delayed No [email or web address] 08:23 AM Hair removed from procedure site in holding area using clippers. Right groin prepped with Chloraprep by Heather Colbert RT (R), safety strap applied then patient was draped. Skin intact. [email or web address] 08:24 AM Hair removed from procedure site in holding area using clippers. Right wrist prepped with Chloraprep by Heather Colbert (R), safety strap applied then patient was draped. Skin intact. [email or web address] 08:24 AM Physician arrived 08:24 [email or web address] 08:24 AM HR=76 bpm, AWEH=944/65 mmhg, SpO2=99.0 %, Resp=13 B/min, Comment=NSR 08:24 AM ASA Class CLASS II- Mild systemic disease (i.e. well-controlled diabetes, hypertension, asthma, cigarette smoking) [email or web address] 08:24 AM Meet and grekate completed [email or web address] 08:24 AM Sign in performed according to hospital policy. [email or web address] 08:24 AM Procedure start 08:24 [email or web address] 08:24 AM Time: 08:24 Oxygen on at 2 L/min per nasal cannula by Millicent Lizarraga RN [email or web address] 08:24 AM Time: 08:24 Versed 2 mg Intravenous Given by Millicent Lizarraga RN [email or web address] 08:24 AM Time: 08:24 Fentanyl 50 mcg Intravenous Given by Millicent Lizarraga RN [email or web address] 08:24 AM Time: 08:24 Patient comfortable and pain free: Yes [email or web address] 08:25 AM Time: 08:25LOC: 4 = Oriented but drowsy [email or web address] 08:26 AM Pressure channel 1 zeroed. 08:29 AM HR=60 bpm, ARUV=249/68 mmhg, SpO2=97.0 %, Resp=14 B/min, Comment=NSR 08:30 AM Time: 08:30 Versed 1 mg Intravenous Given by Millicent Lizarraga RN [email or web address] 08:30 AM Time: 08:30 Fentanyl 100 mcg Intravenous Given by Millicent Lizarraga RN [email or web address] 08:31 AM Time out performed according to hospital policy [email or web address] 08:31 AM Time: 08:31 0.5 ml Lidocaine 2% to right radial Subcutaneous Given by Trung Ray MD, [facility] [email or web address] 08:34 AM HR=58 bpm, JXCW=094/65 mmhg, SpO2=98.0 %, Resp=15 B/min, Comment=NSR 08:34 AM Access obtained by percutaneous puncture. 5Fr 10cm Terumo Glidesheath sheath placed in right Radial artery. [id number] [email or web address] 08:35 AM Time: 08:35 Patient given 4,000 units Heparin, 200 mcg Nitroglycerin, and 2.5 mg Verapamil Intraarterial by Trung Ray MD, [facility] [email or web address] 08:35 AM 0.035 260cm Navilyst 3mmJ wire [id number] [email or web address] 08:35 AM 5Fr TIG catheter inserted over the wire [facility] [email or web address] 08:35 AM Recorded Pressure: Ao, HR=62, Condition=Condition 1 (Aorta) Ao 82/60/71 08:35 AM RCA angiography performed in multiple views. [email or web address] 08:36 AM Coronary Dominance: right [email or web address] 08:36 AM Catheter repositioned for LCA. [email or web address] 08:37 AM Recorded Pressure: LV, HR=67, Condition=Condition 1 (Left Ventricle) LV 75/18/13 08:37 AM Catheter selectively placed in left ventricle [email or web address] 08:37 AM Bolus angiogram of left Ventricle complete: 10 ml/sec for a total of 30 mls [email or web address] 08:37 AM Recorded Pressure: LV, Ao, HR=68, Condition=Condition 1 (Left Ventricle) LV 87/18/40, (Aorta) Ao 106/62/81 08:38 AM Catheter removed [email or web address] 08:38 AM 5Fr FL 3.5 catheter inserted over the wire [id number] [email or web address] 08:39 AM HR=60 bpm, NIBP=97/54 mmhg, SpO2=88.0 %, Comment=NSR 08:40 AM Time: 08:25LOC: 4 = Oriented but drowsy [email or web address] 08:40 AM Time: 08:24 Patient comfortable and pain free: Yes [email or web address] 08:40 AM Catheter removed [email or web address] 08:42 AM 5Fr RBL 3.5 catheter inserted over the wire [id number] [email or web address] 08:43 AM LCA angiography performed in multiple views. [email or web address] 08:43 AM HR=52 bpm, NIBP=98/57 mmhg, SpO2=94.0 %, Resp=12 B/min, Comment=NSR 08:43 AM Recorded Pressure: Ao, HR=?, Condition=Condition 1 (Aorta) Ao ?/?/? 08:44 AM Recorded Pressure: Ao, HR=60, Condition=Condition 1 (Aorta) Ao 99/72/84 08:44 AM Catheter removed [email or web address] 08:45 AM Procedure completed at 08:45 [email or web address] 08:45 AM Sign out completed: Radiation Dose 307.1 mGy Fluoro Time: 3.3 Isovue 370 - 200ml contrast ml given by Trung Ray MD, [facility]. Complications: NoneCardiac Rehab Consult needed: NoConfirmed administered medications: No [email or web address] 08:46 AM Isovue 370 - 200ml,1 Bottle(s) used. [email or web address] 08:46 AM Arterial sheath pulled, Vasc Band closure device used and was Successful S/N. [email or web address] 08:46 AM 10 ml air in Vasc Band. [email or web address] 08:46 AM Post ECG NSR [email or web address] 08:47 AM Post Blood Pressure 98/57 [email or web address] 08:47 AM 08:47 Post Pulses Rt Radial 2+ [email or web address] 08:47 AM Information taught Cardiac Cath and Vasc Band [email or web address] 08:47 AM Education needs Procedure, Plan of Care, and Disease Process [email or web address] 08:47 AM Learning barriers :None [email or web address] 08:47 AM Education Methods Verbal [email or web address] 08:47 AM Education evaluation Able to repeat information [email or web address] 08:47 AM Site status No bleeding/hematoma - Rt Wrist as reported by Lexy Jaramillo RT (R) at 08:47 [email or web address] 08:47 AM Opsite applied [email or web address] 08:47 AM Delay to floor No [email or web address] 08:47 AM Family placed in not available. [email or web address] 08:48 AM Complications: None [email or web address] 08:48 AM Fluoro Time: 3.3 [email or web address] 08:48 AM Radiation Dose 307.1 mGy [email or web address] 08:51 AM Report given to Noemi AGUILAR Pt taken to [facility] Room #29. 08:51 [email or web address] 08:51 AM Patient out of room: 08:51 [email or web address] Complications Complication None None Hemodynamics Pressures Site Systolic/A Wave Diastolic/V Wave Mean AO 82 60 71 LV 75 18 13 LV 87 18 40 AO 106 62 81 AO AO 99 72 84 Post Procedure Information Blood Pressure: 98/57 mmHg Rhythm: NSR Post procedural instructions were not given Closure Device Time Device Success/Fail 10/17/2016 8:46:00 AM Mechanical Compression Successful Site Checks Time Location Status Staff Sheath In? Note 08:47 AM Rt Wrist No bleeding/hematoma Lexy Jaramillo RT (R) Pulses Time Site Pre-Procedure Post-Procedure Note 10/17/2016 7:50:00 AM Bilateral DP 2+ 10/17/2016 7:50:00 AM Bilateral radial 2+ 8:47:00 AM Rt Radial 2+ Updated by Heather Colbert RT(R) on 10/17/2016 8:54:27 AM electronically signed on 10/17/2016 8:54:52 AM with status of Final
--- NOTE | 2016-10-17 09:42 | Event Note ---
Date of Encounter: 10/17/16 Time of Encounter: 09:40 - Cardiology Event Note Per discussion with Dr. Ray, no significant lesions on catheterization. Okay to discontinue aspirin and nitrates. Cardiology will sign off, re-consult as needed, follow-up with PCP. All questions answered.
[2016-10-17 10:08] VITALS: BP 97/62
--- NOTE | 2016-10-17 10:08 | Invasive Diagnostic Lab ---
Name: Ruth Ma Date of Study: 10/17/2016 Date: 1970 Ht: 175.0 cm /68.9 in Medical Record#: [id number] Age: 45 Wt: 123. kg / 271.17 lb Account/Order#: [id number] Gender: Female BSA: 2.35 Order #: [id number] Fluoro Dose: 307 mGy BMI: 40.16 Procedure Physician: Trung Ray MD, [facility] Referring MD: Referring MD: Procedures Performed: LEFT HEART CATH Indications: Chest Pain, Dyspnea Impressions: Coronary arteries are angiographically normal. The left ventricle is normal and has normal contractility EF 60% Recommendations: Optimal medical therapy of patient's disease. Aggressive risk factor modification. History/Risk Factors: asthma GERD anxiety depression Procedure Access obtained in the right Radial artery by percutaneous puncture Complications: None, None Closure Device: Mechanical Compression Hemodynamics: Pressures Site Systolic/ A Wave Diastolic/ V Wave End Diastolic/ Mean HR AO 82 60 71 62 LV 75 18 13 67 LV 87 18 40 68 AO 106 62 81 72 AO 0 AO 99 72 84 60 LV Ventriculography Ejection Method: LV Gram Ejection Fraction: 60% Wall Motion: THAYER Anterobasal Normal Anterolateral Normal Apical: Normal Inferoapical Normal Inferobasal Normal Coronary Dominance: right Lesion Findings/Interventions * Left Main Coronary Artery The LMCA is angiographically free of disease. * Left Anterior Descending The LAD is angiographically free of disease. The 1st Diagonal is angiographically free of disease. * Circumflex The Circumflex is angiographically free of disease. The 1st Marginal is angiographically free of disease. * Right Coronary Artery The RCA is angiographically free of disease. The Right PDA is angiographically free of disease. Updated by RT Maicol(R) on 10/17/2016 8:56:30 AM Trung Ray MD, [facility] electronically signed on 10/17/2016 10:04:36 AM with status of Final
--- NOTE | 2016-10-17 11:00 | Discharge Summary ---
Date of Encounter: 10/17/16 Time of Encounter: 10:00 - Discharge Diagnosis (1) Abnormal stress test Priority: Primary Status: Acute (2) Chest pain Priority: Primary Status: Acute Qualifiers: Chest pain type: unspecified Qualified Code(s): R07.9 - Chest pain, unspecified (3) DVT prophylaxis Priority: Secondary Status: Acute (4) Asthma Priority: Secondary Status: Chronic Qualifiers: Asthma severity: unspecified severity Asthma complication type: uncomplicated Qualified Code(s): J45.909 - Unspecified asthma, uncomplicated - Discharge Medications Home Medications: Albuterol Sulfate [Albuterol Inhaler] 2 puff IH Q4HR PRN 12/08/15 [History] BuPROPion XL (24 HR) [Wellbutrin Xl] 150 mg PO DAILY 12/08/15 [History] Cetirizine HCl [Zyrtec] 10 mg PO DAILY 12/08/15 [History] Fluticasone Propionate Nasal [Flonase] 2 spr NS DAILY 12/08/15 [History] Lansoprazole [Prevacid] 30 mg PO DAILY PRN 12/08/15 [History] Montelukast [Singulair] 10 mg PO DAILY 12/08/15 [History] Multivitamin [One Daily Essential] 1 tab PO DAILY 12/08/15 [History] [place]-3/Dha/Epa/Fish Oil [Fish Oil 1,000 mg Softgel] 1,000 mg PO DAILY 12/08/15 [History] Sertraline [Zoloft] 50 mg PO DAILY 12/08/15 [History] Ascorbate Calcium [Vitamin C] 500 mg PO DAILY 10/15/16 [History] Vitamin B Complex [B Complex] 1 tab PO DAILY 10/15/16 [History] Simvastatin [Zocor] 20 mg PO HS #30 tablet 10/17/16 [Rx] Allergies/Adverse Reactions: Allergies acetaminophen [From Vicodin] Adverse Reaction (Verified 12/08/15 09:32) Vomiting hydrocodone [From Vicodin] Adverse Reaction (Verified 12/08/15 09:32) Vomiting Procedures/tests Complete & Pending: Procedures Performed prior 72 hours Category Date Time Status Left Heart Cath [CL Cardiac Catheterization] [CL] [employer] 10/17/16 06:57 Completed Routine NM jasbir perf SPECT multi [NM] Routine Exams 10/15/16 12:13 Taken EV limited echocardiogram Stat Y 05/23/17 12:13 Completed SP pharm nuclear stress Routine Y 10/16/16 10:45 Completed - Notes to Outpatient Provider Add simvastatin 20 mg by mouth daily for hypercholesterolemia, please follow-up cholesterol level, liver function. Date of admission: 10/15/16 12:09 Primary care physician: Mindi Maldonado CNP Consults: 10/16/16 14:09 Consult to Cardiology [CONS] Routine Comment: Consulting Provider: Cardiology Inna Reason for Consult: Abormal stress test Call Completed: Yes Discharging clinician: Mirian Guevara Anticipated date of discharge: 10/17/16 - Patient Status Disposition: Home, Self-Care Condition: Good Functional capacity at discharge: independent ambulation Overall status at discharge: patient is back to baseline - Discharge Instructions Follow Up With: Mindi Maldonado CNP [Primary Care Provider] - Additional Instructions: RISK FACTORS: STOP SMOKING: If you smoke, STOP. Smoking or tobacco use significantly increases your risk of heart disease because nicotine causes the arteries to narrow or constrict. It also causes fats to stick to the artery. Your chances of having a heart attack are greatly increased if you continue to smoke. For more information, call the education line for smoking cessation 7-169-OZFBNSA EAT A LOW FAT/CHOLESTEROL/SODIUM DIET: This diet may help reduce your chances of having a heart attack. LIFTING: With affected extremity: Avoid bending, pushing off and lifting more than 2 pounds for 24 hours The following 48 hours, avoid lifting anything more than 5 pounds Avoid strenuous activity or repetitive motions ACTIVITY: You may walk or climb stairs as tolerated You can resume sexual activity as tolerated In general, you are encouraged to engage in a minimum of 30 minutes or more of moderate intensity physical activity, such as brisk walking, daily or at least 3 -4 times weekly BATHING Do not submerge the site into water (bath tub, hot tub, swimming pool, dishes) for 1 week. This can be a source for infection into the blood stream. You may shower after 24 hours SITE CARE: After 24 hours, you may remove the dressing and leave the site open to air. Keep the site clean and dry. Clean gently and pat dry. You can expect bruising and tenderness that gradually resolve within a week or two. Return to work as instructed per your physician Resume driving as instructed per physician Keep all scheduled follow up appointments Resume medications as instructed IMPORTANT: If prescribed a Platelet Aggregation Inhibitor such as, Plavix, Brilinta or Effient: Duration of therapy is minimum one year These medications are often used in combination with Aspirin in prevention of future heart attacks Never discontinue unless consult with your Gym Manager STROKE (CVA) Risk factors for a stroke are: Age, cigarette smoking, diabetes, excessive alcohol consumption, family history, high blood pressure, overweight, physical inactivity, prior stroke, heart attack, diagnosis of carotid artery stenosis or other artery disease. Warning signs: Sudden numbness or weakness of the face, arm or leg; especially on one side of the body, sudden confusion, trouble speaking or understanding, sudden trouble seeing in one or both eyes, sudden trouble walking, dizziness, loss of balance or coordination, sudden severe headache with no cause. Call 911 or go to the Emergency Room. CONGESTIVE HEART FAILURE: If you have been diagnosed with Congestive Heart Failure (CHF) and your symptoms return, make an appointment with your physician Weigh yourself daily. Notify your physician if you have a weight gain of two or more pounds in one day or five or more pounds in one week. If you experience any difficulty breathing, please call 911 BLEEDING: Although the risk of bleeding is minimal, it can happen. If you have any bleeding from the site, apply firm pressure above the puncture site for 10-15 minutes. If the bleeding does not stop, continue manual pressure and call 911 Contact [facility] ( ) if: You develop a fever greater than 101 degrees Fahrenheit Your site becomes reddened or has any drainage You have an increase in pain or burning at the site or if a large knot forms at the site. If you experience chest pain, shortness of breath, dizziness, or extreme tiredness, stop the activity and rest. Please notify [facility] office if you experience any of these symptoms and they are not relieved by rest please call 911! - Diet and Activity Activity: increase activity as tolerated Diet: advance to your usual diet Interval History: Ms. Ma is a 45 year old female who presents from the ED with chief complaint of chest pain over the past week and half. She reports she has been experiencing shortness of breath for the past month. Mrs. Ma describes chest pain as an ache and rates it as a 5 on a scale from 0-10. Reports pain is not affected with exertion but does radiate to her neck and shoulder. Patient is obese with BMI of 40.2 and states she recently lost weight but was unsuccessful in keeping it off. She denies palpitations, edema, syncope, cough , wheezes, nausea vomiting, or generalized weakness or numbness. Patient has no cardiac history or history of heart disease. Patient is to be admitted as observation status where we will trend her troponins. Patient is to be placed on continuous cardiac telemetry with repeat EKG. Orders for limited echo in pharmacological stress test have been placed with possible cardiology consult based on results of stress test. Lipid panel ordered as well. Patient to receive ibuprofen for pain rated 1-3 and ketorolac for pain rated 4-6. Nitroglycerin when necessary ordered. Lipitor 20 mg ordered while inpatient status. DVT prophylaxis to include heparin 5000 units subcutaneous every 8 hours. Patient to be monitored closely for continued signs of chest pain. Hospital course: Ms. Ma is a 45 year old female admitted for chest pain. She was placed on continuous cardiac monitoring. Chest x-ray and EKG unremarkable. 3 sets of troponin negative, d-dimer negative. Stress test has been done, questionable anterior wall ischemia, cardiology consult was called, LHC done and there is no significant coronary artery change. Patient is pain-free after hospitalization. We will discharge patient home today. I saw and examined the patient. She is awake alert, denies chest pain or shortness of breath, vital signs stable. Patient had LHC today. Encourage patient to hydrate herself. Add simvastatin 20 mg daily for hypercholesterolemia. - Time Spent with Patient Total time spent providing and/or coordinating discharge services: 25 minutes Less than 30 minutes - Constitutional Vitals: Temp Pulse Resp BP Pulse Ox 97.9 F 55 16 97/62 94 10/17/16 10:06 10/17/16 10:06 10/17/16 10:06 10/17/16 10:06 10/17/16 10:06 General appearance: Present: cooperative, A&O X 3, morbidly obese, pleasant, no acute distress, answers questions appropriately - Head Head exam: Present: atraumatic, normocephalic - Eye Eye exam: Present: PERRL, conjuntiva pink, sclera anicteric Pupils: Present: PERRL - Neck Neck exam general surgery: Present: supple, trachea midline. Absent: lymphadenopathy - Respiratory Respiratory exam: Present: CTAB. Absent: accessory muscle use, rales, rhonchi, wheezes - Cardiovascular Cardiovascular exam: Present: RRR, +S1, +S2. Absent: diastolic murmur, gallop, rubs, systolic murmur - GI/Abdominal GI/Abdominal exam: Present: normal bowel sounds, soft, no peritoneal signs. Absent: distended, tenderness - Extremities Exam Extremities exam: Present: warm, radial pulses palpable and symetrical. Absent : calf tenderness, cyanotic, pedal edema - Neurological Exam Neurological exam: Present: CN II-XII intact, oriented X3, no focal deficits. Absent: pronater drift, facial droop, speech deficit - Skin Skin exam: Present: dry, intact
== END 2016-10-17 13:37 | disposition home or self-care (01) ==
LOC: EMEROO 09:16 → 3NENU 09:16
PROVIDERS: ADMIT Internal Medicine; ATTEND Internal Medicine